=== PATIENT | female | born 1960 ===

== ENCOUNTER 2022-12-17 05:27 | Day surgery (SDC) | payer OTHER ==
[~2022-12-17] VITALS: Ht 157.5 cm; Wt 61.2 kg
[~2022-12-17 05:27] MED LIST: CARAFATE1 GM PO; COZAAR100 MG PO; FAMOTIDINE40 MG PO; GABAP PO; GLIMEPIRIDE4 M1 PO; PREVACID30 MG PO; RESTORIL15 MG PO; SIMVASTATIN20 MG PO
[2022-12-17] MEDS ORDERED: TYLENOL325 MG PO (08:24)
== END 2022-12-17 13:15 | disposition home or self-care (01) ==
LOC: CIR.AMB 05:27 → OB/GYN 12:15 → CIR.AMB 12:15 → EDSTATUS 12:15 → CIR.AMB 13:15 → OB/GYN 14:45
PROVIDERS: ATTEND Obstetrics & Gynecology Gynecology
DX: N95.0 Postmenopausal bleeding (principal); Z88.6 Allergy status to analgesic agent; Z91.041 Radiographic dye allergy status; E11.9 Type 2 diabetes mellitus without complications; E78.5 Hyperlipidemia, unspecified; I10 Essential (primary) hypertension; Z20.822 Contact with and (suspected) exposure to COVID-19